=== PATIENT | female | born 1935 | race Caucasian/White ===

== ENCOUNTER 2023-03-21 02:55 | Emergency (ER) | payer MEDICARE, OTHER, SELFPAY ==
[2023-03-21 03:00] VITALS: BP 166/81
[2023-03-21 03:14] VITALS: BP 166/81
[2023-03-21] MEDS: MOTRIN 400 MG PO (05:19)
--- NOTE | 2023-03-21 06:29 | ED.GENMED ---
Addendum entered and electronically signed by Leon Castillo MD 03/21/23 09:22:
aware of fx. daughter. will get sling and f/u ortho tomorrow. sees ortho
Original Note:
History of Present Illness
General
Chief Complaint: Fall
Source: patient and family (Daughter)
Exam Limitations: none
Time Seen by Provider: 03/21/23 04:46
Nursing documentation reviewed up to this point in time: agreed with
Travel History
Have you had any contact with someone who has COVID-19?: No
Do you have any symptoms of coronavirus? Fever > 100 degrees, chills, cough, shortness of breath, sore throat, loss of taste or smell, muscle aches, or headache?: No
History of Present Illness
History of Present Illness:
87-year-old female with past medical history as documented presents to the emergency room accompanied by her daughter for evaluation after fall. Patient lives independently at [facility]. She typically ambulates with a cane. She says that she woke
up at around 1 AM to go to the bathroom. She says she was using her cane. She says that while she was in the bathroom she lost her balance and she fell down. She says she landed on her right side. She is not sure if she hit her head but says she
did not lose consciousness. She says that she injured her right arm and also has some pain in her right hip and her right knee. She denies any other complaints. She denies any neck pain or back pain. She denies any chest or abdominal pain. She
denies any numbness or weakness in her extremities. She denies being on any blood thinners although review of her medication list does show that she is on baby aspirin.
Review of Systems
Review of Systems
All Other Systems: ROS reviewed and negative except as documented in HPI and ROS
Respiratory: Denies trouble breathing
Cardiac: Denies chest pain
ABD/GI: Denies abdominal pain, nausea or vomiting
: Denies flank pain
Musculoskeletal: Reports joint pain (Right arm pain, right hip pain, right shoulder pain); Denies neck pain or back pain
Neurological: Denies dizzy, headache, weakness or numbness
Phy Exam
Physical Exam
Physical Exam:
General: Awake, alert, oriented x3; no acute distress
Head: Normocephalic, atraumatic
Eyes: Conjunctiva normal, pupils equal round and reactive to light bilaterally
Throat: Airway intact, handling secretions
Neck: Trachea midline, no tenderness in the cervical spine
Back: No signs of trauma to the back or flank and no tenderness in thoracic or lumbar spine
Lungs: Clear to auscultation bilaterally, no wheezing, rales, rhonchi
Heart: Regular rate and rhythm, no murmurs, gallops, or rubs
Abd: Soft, non distended, nontender
Neuro: Cranial nerves grossly intact, speech fluid
Skin: no rash
Extremities: Patient has some tenderness of the lateral right upper arm but no focal tenderness over the humeral head, AC joint, clavicle on the right and no scapular tenderness on the right; she has some mild tenderness over the patella and tibial
tuberosity on the right knee but no significant joint line tenderness, no right knee effusion and is able to move the right knee through full range of motion here with minimal discomfort; she has some lateral right hip tenderness but no ecchymosis,
allows for full passive range of motion with only very mild discomfort in the right hip; left upper and lower extremities are atraumatic; all of her extremities have good strong palpable pulses.
Scores
Heart Failure Risk
Heart Failure Risk Score: Not Applicable
Heart Score for Chest Pain Patients
STEMI patient?: Not applicable
Withdrawal Assessment of Alcohol
Withdrawal Assessment Completed?: Not applicable
Course
Orders/Labs/Results
Orders:
Orders
03/21/23 03:02
EKG [Electrocardiogram (*1)] Urgent
Reason for Study: Fatigue / Weakness
EKG- Treatment ONCE
03/21/23 03:03
CT Cervical Spine W/o Iv Contr Urgent
Comment:
Reason For Exam: fall
03/21/23 03:04
CT Head W/o Iv Contrast Urgent
Comment:
Reason For Exam: fall
03/21/23 03:43
CR Hip - RT w/wo Pel 2-3 Vw* Urgent
Comment:
Reason For Exam: hip pain s/p fall
Include a pelvis x-ray?: Yes
CR Knee- Right 4 Or More View* Urgent
Comment:
Reason For Exam: knee pain s/p fall
03/21/23 03:55
CR Humerus - Right Min 2 View* Urgent
Comment:
Reason For Exam: fall
03/21/23 05:15
Ibuprofen [Motrin] 400 mg PO NOW STA
Vital Signs
Initial and Last Documented VS:
Initial Vital Signs
BP
166/81
03/21/23 03:00
Last Documented Vital Signs
Temp Pulse Resp BP Pulse Ox
36.8 C 79 17 166/81 92
03/21/23 03:14 03/21/23 05:45 03/21/23 05:45 03/21/23 03:14 03/21/23 05:00
MDM/Problems Addressed
Differential Diagnosis Includes:
Right arm pain: Arm contusion, humeral fracture, shoulder dislocation, shoulder sprain
Right hip pain: Hip fracture/femur fracture, pelvic fracture, hip contusion
Right knee pain: Knee sprain, knee fracture, knee contusion
Fall: Must rule out traumatic injury given her age
MDM/Problems Addressed:
87-year-old female presents after mechanical fall while going to the bathroom last night. Lost her balance and landed on her right side injuring her right arm, right hip and right knee. Unsure whether she hit her head but says she did not lose
consciousness. She is on aspirin but no other blood thinners. Hypertensive but otherwise normal vitals here. Exam as above. Will check CT head and cervical spine in abundance of caution given her age. Will check x-rays of the humerus, knee, hip
on the right. Will treat with some Motrin. Monitor closely reassess after the above.
CT head and cervical spine negative for any acute pathology. X-ray of the hip, knee, humerus reviewed independently by me: No acute fracture or dislocation. On clinical reassessment patient is feeling a bit better after Motrin. She was able to
get out of bed and ambulate with a walker here and she has a walker at home that she can use to help her get around. I spoke to the patient and her daughter at length and offered attempt to place her into rehab for short period of time but patient
was able to move around quite well here and feels comfortable going home to her apartment. Daughter is also comfortable with this plan. I did speak to her about taking Tylenol and Motrin as needed for pain and following up with her primary doctor.
All questions answered.
Chronic conditions affecting care:
Hyperactive bladder�frequently goes to the bathroom at night and last night fell while going to the bathroom
Acute Exacerbation and/or Progression of Chronic Illness:
Acutely hypertensive likely related to pain�we will treat pain but no indication for emergent antihypertensive therapy at present
Acute Exacerbation and/or Progression of Chronic Illness: HTN
*Radiology
Radiology exam reviewed: preliminary read by ED provider and radiology read reviewed
*Pulse Oximetry
Patient hypoxic: no
*Critical Care Note
Total Time (30-74mins, 75-104mins- exclusive of procedures): Not Applicable
Data Reviewed
Source: patient and family (Daughter)
Patient Management
Escalation/DeEscalation of care consider admission/obs:
Considered observation for case management consultation and rehab placement but patient feels well enough for discharge home and family is comfortable with this
ED Attending Note
-
Portions of this chart may have been created with voice recognition software.� Occasional wrong word or��sound alike� substitutions may have occurred due to the inherent limitations of voice recognition software.
Discharge Plan
Departure
Patient Disposition: Home (Routine Discharge)
Date of Disposition: 03/21/23
Time of Disposition: 06:11
Patient with high blood pressure during this ER visit?: Yes
Discharge Problem:
Contusion of arm, right, Contusion of right knee, Fall, Contusion of hip, right
Instructions: Contusion (DC)
Prescriptions:
No Action
aspirin [Ecotrin Low Strength] 81 MG tablet,delayed release (DR/EC)
81 mg PO HS
atorvastatin 20 mg Tablet
20 mg PO QPM
tramadol 50 mg Tablet
50 mg PO TID
Flarex 0.1 % Drops,Suspension
1 drp LEFT EYE BID
Myrbetriq 50 mg Tablet Extended Release 24 Hr
50 mg PO DAILY
Centrum Silver Women 8 mg iron-400 mcg-300 mcg Tablet
1 tab PO DAILY
brinzolamide [Azopt] 1 % Drops,Suspension
1 drp LEFT EYE BID
cyclosporine [Restasis] 0.05 % Dropperette
1 drp LEFT EYE Q12H
Lumigan 0.01 % Drops
1 drp LEFT EYE QPM
acetaminophen [Tylenol Extra Strength] 500 mg Tablet
500 mg PO DAILY
cholecalciferol (vitamin D3) [Vitamin D3] 25 mcg (1,000 unit) Tablet
25 mcg PO DAILY
ketorolac 0.5 % drops
1 drp LEFT EYE QID
Systane (PF) 0.4-0.3 % Dropperette
1 drp BOTH EYES 6XD
levothyroxine [Synthroid] 50 mcg Tablet
50 mcg PO DAILY
omega 0-loq-ons-fish oil [Fish Oil] 300-1,000 mg Capsule
1 cap PO BID
calcium carb-mag ox-zinc sulf
1 tab PO DAILY
Referrals:
Phillip Ramires MD [Family Provider] - Follow up in 5-7 days
Activity Restrictions/Additional Instructions:
Thank you for visiting the Emergency Department at [facility].
1. Please schedule a follow up appointment as directed. Call first thing tomorrow morning to make an appointment.
2. If indicated, please take your medications as instructed and indicated on discharge paperwork.
3. If any of your symptoms do not improve, or persist, or become more severe within 6-12 hours, please return to the emergency department for further care.
4. Please return to the emergency department if you develop a headache, neck pain/stiffness, fever greater than 100.4F, chest pain, shortness of breath, persistent nausea, vomiting, slurred speech, difficulty walking, numbness/tingling, weakness,
signs of infection or any other symptoms that are worrisome to you.
Please call [phone] if you have any questions.
Interventions
Interventions:
*Risk Screen - Suicide Last Done: 03/21/23 03:14
*General Assessment Last Done: 03/21/23 03:14
*Neglect/Abuse Screening Last Done: 03/21/23 03:14
ED- Fall Risk Assessment Last Done: 03/21/23 03:15
ED-Musculoskeletal Assessment Last Done: 03/21/23 03:15
ED- Neurological Assessment Last Done: 03/21/23 03:15
ED-Skin Assessment Last Done: 03/21/23 03:15
== END 2023-03-21 07:08 | disposition home or self-care (01) ==
LOC: EMR 02:55
PROVIDERS: EMERGENCY PHYSICIAN Emergency Medicine; FAMILY PHYSICIAN Internal Medicine Geriatric Medicine
DX: S40.021A Contusion of right upper arm, initial encounter (principal); S70.01XA Contusion of right hip, initial encounter; S80.01XA Contusion of right knee, initial encounter; W01.0XXA Fall on same level from slipping, tripping and stumbling without subsequent striking against object, initial encounter; Z79.82 Long term (current) use of aspirin
CPT/HCPCS: 99283; 70450; 72125; 73060; 73502; 73564; 93005

== ENCOUNTER → 2023-05-19 14:30 | Outpatient (REF) | payer MEDICARE, OTHER, SELFPAY ==
[2023-05-19 17:03] LABS: Urine Albumin Trace (Neg - Trace); Urine Bilirubin Negative (Negative); Urine Character Very Cloudy (Clear); Urine Color Yellow; Urine Glucose Negative (Negative); Urine Ketone 1+ (Negative); Urine Leukocyte Trace (Negative); Urine Nitrite Negative (Negative); Urine Occult Blood Negative (Negative); Urine Urobilinogen Negative (Neg - 1+)
[2023-05-19 17:12] LABS: Urine Amorphous Seen; Urine Granular Cast 0-2 /LPF (0); Urine Red Blood Cell None Seen /HPF (0-2); Urine Squamous Cell 0-2 /LPF (Few); Urine White Cell 0-2 /HPF (0-5)
== END ==
LOC: OLABPV 14:30
PROVIDERS: ATTENDING PHYSICIAN Internal Medicine Geriatric Medicine
DX: N39.0 Urinary tract infection, site not specified (principal)
CPT/HCPCS: 81003; 81015; 87086